=== PATIENT | male | born 1965 | race Caucasian/White ===

== ENCOUNTER 2020-01-01 12:13 | Inpatient (IN) | payer SELFPAY ==
[2020-01-01] VITALS (24 sets, daily range): BP systolic 122–172; BP diastolic 65–116; PULSE 57–70; RESP 12–28; TEMP 36.8–36.9; O2SAT 91–98; BMI 35.4
--- NOTE | 2020-01-01 | CT_ITS ---
WS: [id number] CTA HEAD AND NECK TECHNIQUE: Contrast enhanced CTA of the head and neck with coronal and sagittal reformatted images an d maximum intensity projection (MIP) images. NASCET criteria utilized. CLINICAL INFORMATION: POSSIBLE STROKE RIGHT SIDE WEAKNESS COMPARISON: None. DLP: [address] scans at [facility] use at least one of these dose optimization techniques: automat ed exposure control; mA and/or kV adjustment per patient size (includes targeted exams where dose is matched to clinical indication); or iterative reconstruction. FINDINGS: RIGHT: Right common carotid artery is patent. No significant right ICA stenosis. Right ICA is patent to the skull base. Tortuous cervical ICA at the skull base. Mild calcification supraclinoid ICA. LEFT: Left common carotid artery is patent. No significant left ICA stenosis. Tortuous cervical ICA a t the skull base. Moderate calcification distal cavernous carotid artery. INTRACRANIAL CTA: Basilar artery is patent. Normal vascularity to the GERMAN TEACHER territory bilaterally. Per sistent right GERMAN TEACHER. Tapered narrowing in the left distal M1 segment extending to the trifurcatio n. Distal vessels remain patent. Insular branches are patent. Subtle decreased vascularity to the lef t frontal and left posterior frontal hemispheres. Both vertebral arteries are patent. Notified Elayne Hampton MD at 01/01/2020 12:[address]/CT angio headneck* [id number] IMPRESSION: 1. Mild tapered narrowing left distal M1 segment with early branching bifurcat ion and mild to moderate stenosis. Distal vessels remain patent. 2. Subtle decreased vascularity to the left frontal and posterior frontal lobe s. 3. Otherwise normal intracranial CTA. 4. No significant ICA stenosis bilaterally. Both ICAs are patent to the skull base. 5. Codominant and patent vertebral arteries.
--- NOTE | 2020-01-01 12:24 | XRR_ITS ---
PROCEDURE INFORMATION: Exam: XR Chest, 1 View Exam date and time: 01/01/2020 12:59 PM Age: 54 years old Clinical indication: Other: Right side weakness/difficulty w/speech; Patient HX: Right side weakness / difficulty w speech; Additional info: R side weak TECHNIQUE: Imaging protocol: XR of the chest Views: 1 view. COMPARISON: CR Chest 1 [place] [id number] 12/27/2013 4:58 PM FINDINGS: Lungs: Mildly reduced lung volumes with associated bibasilar bronchovascular crowding. Pleural space: Unremarkable. No pleural effusion. No pneumothorax. Heart/Mediastinum: Heart size upper normal. Bones/joints: Unremarkable. XR/XR chest 1V portable [id number] IMPRESSION: Mild bibasilar hypoventilatory appearance.
--- NOTE | 2020-01-01 12:24 | CT_ITS ---
WS: [id number] CT HEAD TECHNIQUE: Noncontrast CT of the head obtained from the skullbase to the vertex. CLINICAL INFORMATION: POSSIBLE STROKE COMPARISON: None. DLP: [address] scans at [facility] use at least one of these dose optimization techniques: automat ed exposure control; mA and/or kV adjustment per patient size (includes targeted exams where dose is matched to clinical indication); or iterative reconstruction. FINDINGS: No evidence of intracranial hemorrhage or mass effect. Ventricular system and basal cisterns are patrick nt. Mild to moderate small vessel changes with mild parenchymal volume loss. Chronic infarct with en cephalomalacia involving the left parietal lobe extending to the left temporal junction. No CT eviden ce of acute ischemia. Lockett-white differentiation is preserved. Normal insular ribbon bilaterally. Partial opacification the left mastoid air cells. Mastoid air cells well aerated. Mild mucosal thicke getachew in the ethmoid air cells. Notified Elayne Hampton MD at 01/01/2020 12:[address]/CT head wo con* [id number] IMPRESSION: 1. No evidence of intracranial hemorrhage or mass effect. 2. 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 3. Otherwise normal lockett-white differentiation. 4. Mild to moderate small vessel changes with mild parenchymal volume loss. 5. No acute intracranial findings.
--- NOTE | 2020-01-01 12:24 | ECG_ITS ---
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 Measurements Intervals [place] Rate: 71 P: 53 MD: 151 QRS: -33 QRSD: 88 T: 31 QT: 367 QTc: 399 Interpretive Statements SINUS RHYTHM POSSIBLE LEFT ATRIAL ENLARGEMENT [-0.1mV P WAVE IN V1/V2] LEFT AXIS DEVIATION [QRS AXIS < -30] No previous ECG available for comparison Electronically Signed On 01-01-2020 17:44:56 CDT by Leroy Dias M.D. [email or web address]
--- NOTE | 2020-01-01 12:26 | ED_ITS ---
HPI - Neuro Symptoms/Deficit General: Chief Complaint: Neuro Symptoms/Deficit Stated Complaint: POSS CVA Time Seen by Provider: 01/01/20 12:15 Source: EMS History of Present Illness: HPI Narrative: acute onset right sided weakness and diffiulty with speech witnessed at [employer] where he works at 1020 today. no known hx of cva or TIA. Not on blood thinners. no known heart disease. EMS states that symptoms have waxed and waned but they definitely witnessed loss of use of his right upper and lower extremity and difficulty with speech. No injury Associated symptoms: Deny chest pain, headache(s), nausea or vomiting Review of Systems General: Reports: 10 or more systems reviewed and unremarkable except in HPI and below Const: Denies: fever(s) or chills Eyes: Denies: change in vision ENMT: Denies: throat pain Card: Denies: chest pain Resp: Denies: dyspnea GI: Denies: abdominal pain, nausea, vomiting or change in bowel habits : Denies: difficulty urinating Musc: Denies: muscle weakness Skin/Breast: Denies: rash Neuro: Reports: weakness in extremities and Slurred speech present; Denies: headache(s) Psych: Denies: hopelessness or suicidal ideation Endo: Denies: polyuria Candido/Lymph: Denies: easy bruising or easy bleeding All/Imm: Denies: urticaria Physical Exam Const: COMMON NORMALS: no acute distress, patient oriented x3, alert and well nourished HENMT: COMMON NORMALS: normocephalic and Normal external nose present HEAD & SCALP: normocephalic NOSE: Normal external nose present MOUTH: no trismus Eye: COMMON NORMALS: EOMs intact bilaterally and conjunctivae normal CONJUNCTIVA: Yes conjunctivae normal Neck/C-Spine: COMMON NORMALS: full ROM, no lymphadenopathy and supple CERVICAL SPINE: Yes cervical ROM normal Lymph: LYMPHATIC: no lymphadenopathy noted Resp: COMMON NORMALS: normal respiratory effort, No retractions, No use of accessory muscles and clear to auscultation bilaterally EFFORT & INSPECTION: Yes able to speak in complete sentences AUSCULTATION: clear to auscultation bilaterally Cardio: COMMON NORMALS: regular rate and regular rhythm RATE: regular rate RHYTHM: regular rhythm GI: COMMON NORMALS: Normal to inspection, nondistended, normoactive bowel sounds present, Soft to palpation, non-tender and no masses INSPECTION: Yes normal to inspection AUSCULTATION: Yes normoactive bowel sounds PALPATION: Yes Soft to palpation, No Guarding due to palpation present (GI) and No Rigid due to palpation Back/Pelvis: OTHER: Normal range of motion Extremity: GENERAL: Yes normal exam except as noted Neuro: COMMON NORMALS: patient oriented x3 SENSORIUM/ORIENTATION: Yes alert SPEECH: speech normal Psych: COMMON NORMALS: mental status grossly normal Skin: COMMON NORMALS: no rashes or lesions noted GENERAL SKIN EXAM: no rashes or lesions noted Course Vital Signs: Vital signs: Vital Signs Temperature 98.3 F 01/01/20 12:14 Pulse Rate 70 01/01/20 12:14 Respiratory Rate 18 01/01/20 12:14 Blood Pressure 172/86 01/01/20 12:14 MDM - Neuro Symptoms/Deficit MDM Narrative: Medical decision making narrative: met pt along with Dr Antonio on arrival in [place]. NIHSS score 5 (heel to gallegos, some lack of coordination in right hand. We were both in room 5 when TPA was given. Pt tolerated well. Admit to ICU. Dr Antonio wants to see him in the office in 1-2 weeks Lab Data: Attestation: I reviewed the patient's lab results. Labs: Lab Results 01/01/20 01/01/20 01/01/20 Range/Units 11:26 11:26 11:26 WBC 9.0 (4.0-10.0) 10^3/ uL RBC 5.46 H (4.1-5.3) 10^6/u L Hgb 16.5 (11.7-16.6) g/dL Hct 49.7 (42.0-52.0) % MCV 91.0 (80-94) fL MCH 30.2 (28.0-34.0) pg MCHC 33.2 (30.0-36.0) g/dL RDW 13.2 (12.1-15.1) % Plt Count 290 (130-400) 10^3/c mm MPV 10.4 (7.4-10.4) fL Neut % (Auto) 66.5 % Lymph % (Auto) 24.9 % Lee % (Auto) 5.4 % Eos % (Auto) 2.0 % Baso % (Auto) 0.6 % Neut # (Auto) 6.0 (1.8-7.7) 10^3/u L Lymph # (Auto) 2.2 (0.8-4.8) 10^3/u L Lee # (Auto) 0.5 (0.2-0.9) 10^3/u L Eos # (Auto) 0.2 (0.0-0.8) 10^3/u L Baso # (Auto) 0.1 (0.0-0.1) 10^3/u L Nucleated RBC % (a uto) 0 % Nucleated RBCs # 0.0 /100WBC PT 13.30 (10.5-13.3) SECO NDS INR 0.98 (0.8-1.2) APTT 31.0 (23.9-36.7) SECO NDS Sodium 140 (136-145) mmol/L Potassium 3.6 (3.5-5.1) mmol/L Chloride 101 (98-107) mmol/L Carbon Dioxide 26 (22-29) mmol/L Anion Gap 16.6 (5-19) BUN 14 (6-20) mg/dL Creatinine 0.9 (0.7-1.2) mg/dL GFR Calculation 87.9 L (90-130) mL/min Glucose 111 (65-115) mg/dL POC Glucose (70-110) mg/dL Calculated Osmolal ity 287 (285-295) mOsm/k g Calcium 9.6 (8.5-10.5) mg/dL Total Bilirubin 0.3 (0.15-1.2) mg/dL AST 28 (0-40) U/L ALT 43 H (0-41) U/L Alkaline Phosphata se 81 (40-130) IU/L Total Protein 7.3 (6.6-8.7) g/dL Albumin 4.6 (3.5-5.2) g/dL Globulin 2.7 (1.3-4.6) g/dL 01/01/20 Range/Units 12:37 WBC (4.0-10.0) 10^3/ uL RBC (4.1-5.3) 10^6/u L Hgb (11.7-16.6) g/dL Hct (42.0-52.0) % MCV (80-94) fL MCH (28.0-34.0) pg MCHC (30.0-36.0) g/dL RDW (12.1-15.1) % Plt Count (130-400) 10^3/c mm MPV (7.4-10.4) fL Neut % (Auto) % Lymph % (Auto) % Lee % (Auto) % Eos % (Auto) % Baso % (Auto) % Neut # (Auto) (1.8-7.7) 10^3/u L Lymph # (Auto) (0.8-4.8) 10^3/u L Lee # (Auto) (0.2-0.9) 10^3/u L Eos # (Auto) (0.0-0.8) 10^3/u L Baso # (Auto) (0.0-0.1) 10^3/u L Nucleated RBC % (a uto) % Nucleated RBCs # /100WBC PT (10.5-13.3) SECO NDS INR (0.8-1.2) APTT (23.9-36.7) SECO NDS Sodium (136-145) mmol/L Potassium (3.5-5.1) mmol/L Chloride (98-107) mmol/L Carbon Dioxide (22-29) mmol/L Anion Gap (5-19) BUN (6-20) mg/dL Creatinine (0.7-1.2) mg/dL GFR Calculation (90-130) mL/min Glucose (65-115) mg/dL POC Glucose 109 (70-110) mg/dL Calculated Osmolal ity (285-295) mOsm/k g Calcium (8.5-10.5) mg/dL Total Bilirubin (0.15-1.2) mg/dL AST (0-40) U/L ALT (0-41) U/L Alkaline Phosphata se (40-130) IU/L Total Protein (6.6-8.7) g/dL Albumin (3.5-5.2) g/dL Globulin (1.3-4.6) g/dL Imaging Data^: CT Head: Radiologist's impression: nothing acute. cta head and neck: Radiologist's impression: [address] [place] [address] [place] Scan Report Signed Patient: Lisa Washington #: [id number] : 1965Acct#:[id number] Age/Sex: 54 / MADM Date: 01/01/20 Loc: ERRoom/Bed: Attending Dr: Ordering Provider/Ordering MD: Elayne Hampton MD Date of Service: 01/01/20 Procedure(s): CT angio headneck* [id number] Accession Number(s): [id number] Report Number: [id number] WS: [id number] CTA HEAD AND NECK TECHNIQUE: Contrast enhanced CTA of the head and neck with coronal and sagittal reformatted images and maximum intensity projection (MIP) images. NASCET criteria utilized. CLINICAL INFORMATION: POSSIBLE STROKE RIGHT SIDE WEAKNESS COMPARISON: None. DLP: [address] scans at [facility] use at least one of these dose optimization techniques: automated exposure control; mA and/or kV adjustment per patient size (includes targeted exams where dose is matched to clinical indication); or iterative reconstruction. FINDINGS: RIGHT: Right common carotid artery is patent. No significant right ICA stenosis. Right ICA is patent to the skull base. Tortuous cervical ICA at the skull base. Mild calcification supraclinoid ICA. LEFT: Left common carotid artery is patent. No significant left ICA stenosis. Tortuous cervical ICA at the skull base. Moderate calcification distal cavernous carotid artery. INTRACRANIAL CTA: Basilar artery is patent. Normal vascularity to the CHRISTIAN SCIENCE PRACTITIONER territory bilaterally. Persistent right CHRISTIAN SCIENCE PRACTITIONER. Tapered narrowing in the left distal M1 segment extending to the trifurcation. Distal vessels remain patent. Insular branches are patent. Subtle decreased vascularity to the left frontal and left posterior frontal hemispheres. Both vertebral arteries are patent. Notified Elayne Hampton MD at 01/01/2020 12:[address]/CT angio headneck* [id number] IMPRESSION: 1. Mild tapered narrowing left distal M1 segment with early branching bifurcation and mild to moderate stenosis. Distal vessels remain patent. 2. Subtle decreased vascularity to the left frontal and posterior frontal lobes. 3. Otherwise normal intracranial CTA. 4. No significant ICA stenosis bilaterally. Both ICAs are patent to the skull base. 5. Codominant and patent vertebral arteries. Dictated By:Sushil Desai MD Signed By:Sushil Desai MDSigned Date/Time:01/01/20 1302 EKG Data^: EKG 1: EKG interpretation date: 01/01/20 EKG interpretation time: 12:48 Prior EKG tracings: not available for review Interpretation: Sinus rhythm rate [address] left axis deviation normal CT interval Critical Care Time Critical Care Time: Critical Care Time: Yes Total Critical Care Time: 30 Attestation: This case had a high probability of a clinically significant, sudden, or life threatening deterioration of this patient's condition which required my full and direct attention, intervention and personal management. Discharge Plan Discharge Patient Disposition: Admitted As Inpatient Clinical Impression: Cerebrovascular accident Qualifiers: CVA mechanism: unspecified Qualified Code(s): I63.9 - Cerebral infarction, unspecified Condition: Fair Coding Level of Care Code ED Videotape Recording Engineer for Chg Fwd Exam Comprehensive
[2020-01-01 12:49] LABS: Basophils # 0.1 10^3/uL (0.0-0.1); Basophils % 0.6 %; Eosinophils # 0.2 10^3/uL (0.0-0.8); Hematocrit 49.7 % (42.0-52.0); Hemoglobin 16.5 g/dL (11.7-16.6); Lymphocytes # 2.2 10^3/uL (0.8-4.8); Lymphocytes % 24.9 %; Mean Corpuscular HGB Conc 33.2 g/dL (30.0-36.0); Mean Corpuscular Hemoglobin 30.2 pg (28.0-34.0); Mean Platelet Volume 10.4 fL (7.4-10.4); Monocytes # 0.5 10^3/uL (0.2-0.9); Monocytes % 5.4 %; Neutrophils % 66.5 %; Nucleated Red Blood Cells % 0 %; Platelet Count 290 10^3/cmm (130-400); Red Blood Count 5.46 10^6/uL (4.1-5.3); Red Cell Distribution Width 13.2 % (12.1-15.1)
[2020-01-01 12:56] LABS: Glucose Point of Care 109 mg/dL (70-110)
[2020-01-01 13:11] LABS: INR 0.98 (0.8-1.2)
[2020-01-01 13:18] LABS: Alanine Aminotransferase 43 U/L (0-41); Albumin Level 4.6 g/dL (3.5-5.2); Alkaline Phosphatase 81 IU/L (40-130); Anion Gap 16.6 (5-19); Aspartate Amino Transferase 28 U/L (0-40); Blood Urea Nitrogen 14 mg/dL (6-20); Calcium 9.6 mg/dL (8.5-10.5); Carbon Dioxide 26 mmol/L (22-29); Chloride 101 mmol/L (98-107); Globulin 2.7 g/dL (1.3-4.6); Glomerular Filtration Rate 87.9 mL/min (90-130); Glucose 111 mg/dL (65-115); Osmolality Calculated 287 mOsm/kg (285-295); Potassium 3.6 mmol/L (3.5-5.1); Sodium 140 mmol/L (136-145); Total Bilirubin 0.3 mg/dL (0.15-1.2); Total Protein 7.3 g/dL (6.6-8.7)
--- NOTE | 2020-01-01 13:46 | P.HP_ITS ---
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 He noticed that he could not pull the lever with his right arm or operate the brakes. His speech was also noted to be garbled at that time and he was sent over to the ER from the EMS. He arrived here at around 12 PM and was seen immediately by neurology. CT of the head showed a lesion in the left parietal lobe that appeared to be chronic. Given the acuity of symptoms and and consistent findings he underwent TPA at 12:[address] Antonio in the ER. NIHSS at presentation was 5. And the time of my evaluation, his right-sided deficits have resolved. His speech is clear and coherent at this present time. I do not see any facial asymmetry. CTA of the head and neck was performed which showed mildly tapered narrow left distal M1 middle cerebral artery with subtle decrease in vascularity of the left frontal and posterior frontal region. There was no sign of an acute embolus. Review of Systems General: Reports: 10 or more systems reviewed and unremarkable except in HPI and below Const: Denies: fever(s), chills or body aches Eyes: Denies: change in vision, blurry vision or photophobia ENMT: Reports: hoarseness; Denies: throat pain, enlarged tonsils, odynophagia or nasal congestion Card: Denies: chest pain, palpitations, irregular heart rhythm, edema, swelling of feet/ankles, lightheadedness, pre-syncope, dyspnea on exertion or orthopnea Resp: Denies: dyspnea, productive cough, non-productive cough, wheezing, stridor, pain on inspiration, change in phlegm color, hemoptysis or chest congestion GI: Denies: abdominal pain, nausea, vomiting, hematemesis, coffee ground emesis, dysphagia, heartburn, diarrhea, constipation, GI cramping, change in stool character, hematochezia or melena : Denies: flank pain, dysuria, urinary frequency, urinary urgency, urinary hesitancy or hematuria Musc: Denies: neck pain, back pain, extremity pain, joint swelling, joint warmth or deformity Neuro: Denies: headache(s), numbness in extremities, weakness in extremities, sensory changes, difficulty walking, frequent falls, dizziness, vertigo, behavioral changes, Slurred speech present or seizure-like activity Psych: Denies: anxiety, depression, suicidal ideation or homicidal ideation Endo: Denies: polyuria, polydipsia, tired all the time, cold intolerance or ho t flashes Candido/Lymph: Denies: easy bruising or easy bleeding Medications/Allergies Home Medications Medication Instructions Recorded Confirmed Last Taken Type No Known Home Medications 01/01/20 01/01/20 Unknown History Allergies Allergy/AdvReac Type Severity Reaction Status Date / Time Unable to Assess Allergy Unverified 01/01/20 12:46 PFSH Acute PFSH: Family History Other Stroke Social History (Updated 01/01/20 @ 18:45 by Francesca Palacios MD) Smoking and tobacco status: current every day smoker Alcohol intake: unknown Substance/Drug Use: unknown Vitals/I&O/Wt Last Vital Signs Temp 98.3 F 01/01/20 12:14 Pulse 70 01/01/20 12:14 Resp 18 01/01/20 12:14 BP 172/86 01/01/20 12:14 12/31/19 01/01/20 01/01/20 22:59 06:59 14:59 Intake Total Balance Weight last 48 hrs Weight 108.817 kg Physical Exam Narrative: EXAM NARRATIVE: GEN: Awake, alert and oriented, no acute distress CVS: S1S2 N RS: CTA B/L Abd: Soft, nt/nd , bs+ 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 Acute left MCA stroke : -s/p tPA at 12:42 pm today in the ER -Vital signs and neurologic status to be checked every 15 minutes for two hours, then every 30 minutes for six hours, then every 60 minutes until 24 hours from the start of alteplase treatment. -Blood pressure must be maintained at or below 180/105 mmHg during the first 24 hours. -Antithrombotic agents incl ASA and Plavix to start 24 hours after the alteplase infusion is completed. - Follow-up noncontrast CT will be obtained 24 hours after alteplase, before starting treatment with antiplatelet agent. Start Lipitor today. - check hemoglobin A1c, lipid panel, TSH to assess for modifiable risk factors. -Check 2D echocardiogram - Telemetry monitoring for the next 24 hours., Holter monitor to be arranged at the time of discharge 2. Hypertension, patient has been noted to have blood pressure up to 179 systolic over here. He denies any past history of hypertension, however has not seen a physician in years. We will keep a close eye. Blood pressure goal to be less than 180/105 during the first 24 hours. 3. Smoking cessation counseling provided DVT ppx: SCD Full code Attestations Medical Necessity Statement*: Acute left MCA infarct, needs post TPA monitoring in the ICU. 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
[2020-01-01 14:40] LABS: Chol HDL Ratio 6.84 mg/dL (1.0-5.00); Cholesterol 171 mg/dL (0-200); HDL Cholesterol 25 mg/dL (60-100); LDL Cholesterol Calculated 73 mg/dL (50-129); LDL HDL Ratio 2.92 RATIO (0.00-3.22); Thyroid Stimulating Hormone 0.82 uIU/mL (0.27-4.20); Triglycerides 364 mg/dL (0-150)
[2020-01-01 14:57] LABS: Estmated Average Glucose 108; Hemoglobin A1C 5.4 % (4.0-6.0)
[2020-01-01 17:01] LABS: Add Urine Microscopic? YES; Bilirubin Urine Neg (NEGATIVE); Blood Urine Neg (Negative); Glucose Urine UA Norm (Normal); Ketones Urine Negative (Negative); Leukocyte Esterase Urine Negative (Negative); Nitrate Urine Positive (Negative); Protein Urine Neg (Negative); Specific Gravity, Urine 1.015 (1.005-1.030); Urine Color Yellow (Yellow); Urobilinogen Urine Neg (Negative); pH Urine 5 (5-7)
[2020-01-01 17:02] LABS: WBC Urine 0-4 /hpf (0-5)
[2020-01-01 17:03] LABS: Add Urine Culture? Yes; Bacteria Urine 4+; Squamous Epithelial Cell Urine 0-4 (0-5)
[2020-01-01 17:12] LABS: Amphetamines Screen Urine Negative (Negative); Barbiturates Screen Urine Negative (Negative); Benzodiazepines Screen Urine Negative (Negative); Cocaine Screen Urine Negative (Negative); Opiate Screen Urine Negative (Negative); PCP Screen Urine Negative (Negative); THC Screen Urine Positive (Negative)
--- NOTE | 2020-01-01 17:51 | PM.SAN ---
Stroke Alert Activation ED Arrival Date: 01/01/20 ED Arrival Time: 12:11 ED Physican at Bedside: 12:20 Last Known Normal/at Baseline: 1-2 hours ago Other Last Known Well Infomation: I was called stat for stroke team at 12:03 PM. I talked with the nurse who took the report from EMS and learned that this was a 54-year-old man with right-sided weakness and onset/last known well 1020 this morning. As I heard the ambulance approaching I went to CAT scan where the patient was just starting his scan. I was able to observe that he was moving his right side and talking with the certified technician specialist. His CT scan of the head was significant for a lesion in the left parietal lobe that appeared to be old. I took a history from EMS who reported that the patient had onset of symptoms while he was at work at the [facility] with observed onset. EMS was called and they agreed to pick him up at the doctor's office nearby and he was taken to the physician's office and picked up by [facility]. When they arrived he was flaccid on the right side and could not communicate with them. By the time they packaged him up for transport he was already starting to move his right side. He fluctuated several times during his transportation and improved again by the time he arrived here. On completion of the CAT scan I examined the patient and found that he was able to repeat a complex phrase and could move his right side although he appeared slightly weak. Because of the intense fluctuation of his symptoms I felt that we should rule out middle cerebral artery occlusion and went on with CT angiogram which also allowed for contrast CT to better evaluate the lesion in his left parietal. While that was being completed I talked with the neuroradiologist and we reviewed his images. I then returned to the emergency department where the patient had vitals including blood pressure 172/86 and Accu-Chek of 123. NIH stroke scale was completed by 1235 yielding a score of 5 and difficulty ambulating. TPA order was given immediately and bolus was at 1242, 30 minutes after arrival. I talked with the patient about the diagnosis. I asked him to stop smoking today. Dr. Desai had an opportunity to review the patient's CT angiogram once the images were fully acquired. He found a mildly tapered narrow left distal M1 middle cerebral artery with subtle decrease in vascularity of the left frontal and posterior frontal region. This was far beyond any opportunity for neuro intervention. There was no sign of an acute embolus. I explained to the patient that I want to see him in my office in 1 to 2 weeks to review his stroke risk factors. He needs to be started on Plavix, aspirin and Lipitor. He needs repeat CT scan of the head in the morning to rule out hemorrhage. Stroke Alert Activated by: [facility] Stroke Alert Activation Time: 12:03 Stroke MD @ Bedside Time: 12:12 NIH Stroke Scale Time: 12:35 NIH Stroke Scale Score: NIH Stroke Scale Score: 5 NIH stroke score NIHSS: Level Of Consciousness - 1a: 0 Level Of Consciousness Questions - 1b: Both Correct Level Of Consciousness Commands - 1c: Both Correct Best Gaze - 2: Normal Visual Cross - 3: No Visual Loss Facial Palsy - 4: Normal Motor Arm Right - 5: Drift Motor Arm Left - 5: No Drift Motor Leg Right - 6: Drift Motor Leg Left - 6: No Drift Limb Ataxia - 7: Present In Two Limbs Sensory - 8: Normal Best Language - 9: Mild/Moderate Aphasia Dysarthia - 10: Normal Extinction And Inattention - 11: 0 Score: Total Score: 5 Stroke Alert Data/Treatment Time to CT of Head: 12:12 CT Results Time: 12:15 CT Impression: Chronic lesion left parietal otherwise normal Stroke Risk Factors: hypertension and smoker tPA Started Time: tPA Started - Time: 12:42 tPA Admin Prior to Arrival: No Patient & Family Educated on: Cause of Stroke, Risk Factors, Treament Plan and tPA Risks/Benefits Standardized Stroke Orders Used: Yes Critical Care Time Critical Care Time: 30 - 74 mins A&P Assessment and plan (1) Left middle cerebral artery stroke: 54-year-old smoker with hypertension who presents acutely with left middle cerebral artery stroke. He has already had a previous posterior branch left middle cerebral artery stroke that was asymptomatic (he definitely has no visual field cut on exam). Risk factors include family history (his father had a severe stroke), mild obesity, smoking and hypertension. Plan to initiate Plavix, aspirin and Lipitor. Because of his young age he should have 20-day monitoring for atrial fibrillation. Transesophageal echo should be done as an outpatient. Echocardiogram here. I will be glad to see the patient if he has further problems otherwise I would like to see him in my office within 1 to 2 weeks. 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
[2020-01-01] MEDS: atorvastatin 40 mg Tablet PO (21:03)
[2020-01-01] MEDS: diphenhydrAMINE 25 mg Capsule PO (21:50)
[2020-01-02] VITALS (42 sets, daily range): BP systolic 102–151; BP diastolic 51–92; PULSE 54–74; RESP 12–25; TEMP 36.6–36.7; O2SAT 91–98
[2020-01-02 05:11] LABS: Basophils % 0.5 %; Eosinophils # 0.3 10^3/uL (0.0-0.8); Eosinophils % 2.9 %; Hematocrit 47.5 % (42.0-52.0); Hemoglobin 15.9 g/dL (11.7-16.6); Mean Corpuscular HGB Conc 33.5 g/dL (30.0-36.0); Mean Corpuscular Hemoglobin 30.9 pg (28.0-34.0); Mean Corpuscular Volume 92.4 fL (80-94); Mean Platelet Volume 10.3 fL (7.4-10.4); Monocytes # 0.6 10^3/uL (0.2-0.9); Monocytes % 7.2 %; Neutrophils # 5.8 10^3/uL (1.8-7.7); Neutrophils % 65.8 %; Nucleated Red Blood Cells % 0 %; Platelet Count 261 10^3/cmm (130-400); Red Blood Count 5.14 10^6/uL (4.1-5.3); Red Cell Distribution Width 13.2 % (12.1-15.1); White Blood Count 8.9 10^3/uL (4.0-10.0)
[2020-01-02 05:20] LABS: Alanine Aminotransferase 39 U/L (0-41); Albumin Level 4.2 g/dL (3.5-5.2); Alkaline Phosphatase 63 IU/L (40-130); Aspartate Amino Transferase 25 U/L (0-40); Blood Urea Nitrogen 12 mg/dL (6-20); Calcium 9.4 mg/dL (8.5-10.5); Carbon Dioxide 23 mmol/L (22-29); Chloride 104 mmol/L (98-107); Globulin 2.4 g/dL (1.3-4.6); Glomerular Filtration Rate 100.7 mL/min (90-130); Glucose 102 mg/dL (65-115); Osmolality Calculated 280 mOsm/kg (285-295); Sodium 137 mmol/L (136-145); Total Bilirubin 0.6 mg/dL (0.15-1.2); Total Protein 6.6 g/dL (6.6-8.7)
--- NOTE | 2020-01-02 12:00 | CT_ITS ---
WS: [id number] CT HEAD TECHNIQUE: Noncontrast CT of the head obtained from the skullbase to the vertex. CLINICAL INFORMATION: 24 hrs post tPA follow up COMPARISON: January 01, 2020 DLP: 760.[address] scans at use at least one of these dose optimization techniques: automat ed exposure control; mA and/or kV adjustment per patient size (includes targeted exams where dose is matched to clinical indication); or iterative reconstruction. FINDINGS: No evidence of intracranial hemorrhage. New wedge-shaped area of subacute ischemia in the left fronta l lobe laterally measuring 1.6 x 2.5 CM. No hemorrhage or mass effect. Additional low-attenuation foc us along the left lateral internal capsule may represent an additional focus of subacute ischemia. No other foci of subacute ischemia. Stable chronic infarct with encephalomalacia in the left parietal and superior temporal lobes. No oth er changes from previous. CT/CT head wo con* [id number] IMPRESSION: 1. No evidence of intracranial hemorrhage 2. New wedge-shaped area of subacute ischemia in the left frontal lobe lateral ly described above. 3. Additional tiny focus of low-attenuation along the lateral internal capsule also suspicious for small focus of subacute ischemia. 4. No other interval changes
--- NOTE | 2020-01-02 17:16 | P.DS_ITS ---
Discharge Providers Date of Admission: 01/01/20 13:00 Date of Discharge: January 02, 2020 Attending Provider at Admission: Francesca Palacios MD Attending Provider at Discharge: Francesca Palacios MD Diagnoses at Discharge Discharge Diagnosis (1) Cerebrovascular accident: Status: Acute Qualifiers: CVA mechanism: unspecified Qualified Code(s): I63.9 - Cerebral infarction, unspecified (2) Hypertension: Status: Acute Qualifiers: Hypertension type: essential hypertension Qualified Code(s): I10 - Essential (primary) hypertension (3) Left middle cerebral artery stroke: Status: Acute Reason for Visit Reason for Visit: POSS CVA Hospital Course Discharge Summary: Juan C Washington is a 54 year old male with no significant past medical history, however not seen a physician in years, chronic smoker, who presented to the ER on 12/31 with chief complaint of right-sided weakness which started suddenly at around 10:30 AM 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 He noticed that he could not pull the lever with his right arm or operate the brakes. His speech was also noted to be garbled at that time and he was sent over to the ER from the EMS. He arrived here at around 12 PM and was seen immediately by neurology. CT of the head showed a lesion in the left parietal lobe that appeared to be chronic. Given the acuity of symptoms and and consistent findings he underwent TPA at 12:[address] Antonio in the ER. NIHSS at presentation was 5. And the time of my evaluation, his right-sided deficits had resolved and remained that way. CTA of the head and neck was performed which showed mildly tapered narrow left distal M1 middle cerebral artery with subtle decrease in vascularity of the left frontal and posterior frontal region. There was no sign of an acute embolus. telemetry did not show any arrhtmia events. outpatient holter monitoring is set up. Rpt CT on 01/01 24 hr post tpa showed wedge-shaped area of subacute ischemia in the left frontal lobe laterally and tiny focus of low-attenuation along the lateral internal capsule also suspicious for small focus of subacute ischemia, likely now better visualized strokes. Echo showed normal transthoracic echocardiogram. He is being discharged on aspirin, Plavix, atorvastatin and amlodipine 5 mg. He is instructed to maintain a blood pressure diary checking his blood pressure twice a day and bring it to his follow-up appointment with Dr. Anotnio and also with his PCP. He does not have a PCP right now, however states that he will initiate care with the [facility]. HbA1c was within normal limits. He was provided smoking cessation counseling. 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 Discharge Data Data Completed and Pending: Completed Studies During Hospitalization Category Date Time Status CT angio headneck * 88410/26742 Urge nt Cat Scan 01/01/[address] head wo con* 7 0450 Routine Cat Scan 01/02/20 12:[address] head wo con* 7 0450 Urgent Cat Scan 01/01/20 12:24 Completed XR chest 1V serenity ble [id number] Stat Exams 01/01/20 12:24 Completed CV echo complete* [id number] Routine Ultrasound 01/02/20 18:51 Completed Pending at discharge Category Date Time Status CA 30 day event m onitor Routine Exams 01/01/20 18:51 Ordered CA cardiac event monitor Routine Exams 01/01/20 18:51 Stop Req Complete Blood Co unt w/Auto AM LABS Lab 01/03/20 04:00 Ordered Complete Blood Co unt w/Auto AM LABS Lab 01/04/20 04:00 Ordered Comprehensive Met abolic Panel AM LA BS Lab 01/03/20 04:00 Ordered Comprehensive Met abolic Panel AM LA BS Lab 01/04/20 04:00 Ordered Urine Culture Sta t Lab 01/01/20 16:10 Results Labs from last 24 hours 01/02/20 01/02/20 03:51 03:51 WBC 8.9 RBC 5.14 Hgb 15.9 Hct 47.5 MCV 92.4 MCH 30.9 MCHC 33.5 RDW 13.2 Plt Count 261 MPV 10.3 Neut % (Auto) 65.8 Lymph % (Auto) 23.0 Thayer % (Auto) 7.2 Eos % (Auto) 2.9 Baso % (Auto) 0.5 Neut # (Auto) 5.8 Lymph # (Auto) 2.0 Thayer # (Auto) 0.6 Eos # (Auto) 0.3 Baso # (Auto) 0.0 Nucleated RBC % (a uto) 0 Nucleated RBCs # 0.0 Sodium 137 Potassium 4.0 Chloride 104 Carbon Dioxide 23 Anion Gap 14.0 BUN 12 Creatinine 0.8 GFR Calculation 100.7 Glucose 102 Calculated Osmolal ity 280 L Calcium 9.4 Total Bilirubin 0.6 AST 25 ALT 39 Alkaline Phosphata se 63 Total Protein 6.6 Albumin 4.2 Globulin 2.4 Vitals: Last Vital Signs Temp 98 F 01/02/20 10:00 Pulse 65 01/02/20 17:00 Resp 16 01/02/20 17:00 BP 117/62 01/02/20 17:00 Pulse Ox 93 01/02/20 17:00 Discharge Plan Discharge Patient Disposition: Home, Self-Care Condition: Fair Prescriptions: New atorvastatin 40 mg Tablet 40 mg PO BEDTIME 30 Days Qty: 30 RF: 0 amlodipine 5 mg tablet 5 mg PO DAILY Qty: 30 RF: 0 aspirin [Adult Aspirin Regimen] 81 mg tablet,delayed release (DR/EC) 81 mg PO DAILY Qty: 30 RF: 1 clopidogrel [Plavix] 75 mg tablet 75 mg PO DAILY Qty: 30 RF: 1 No Action No Known Home Medications RF: 0 Discharge Orders: Discharge Order (Routine); Ordered 01/02/20 Ordered By: Francesca Palacios Referrals: Yaima Ferrara FNP [Family Provider] - 2 weeks Siri Antonio MD [Physician] - 7-10 days Discharge Diet: Cardiac, Low Salt and Low Cholesterol Discharge Activity: Resume usual activity Activity Restrictions/Additional Instructions: Maintain a blood pressure diary way of checking blood pressure at the same time every day twice a day and bring it to the next follow-up appointment with your primary care provider and neurology. 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
--- NOTE | 2020-01-02 18:51 | USCV_ITS ---
Juan C Washington Age: 54 Gender: M : 1965 Exam Date: 01/02/2020 05:45 Ordering Phys: Francesca Palacios MD Technologist: Fiorella Fairbanks Exam Location: [facility] Indication: CVA BP: 102 / 57 HR: 59 Rhythm: Sinus Technical Quality: Adequate MEASUREMENTS (Male / Female) Normal Values 2D ECHO LV Diastolic Diameter PLAX 3.7 cm 4.2 - 5.9 / 3.9 - 5.3 cm LV Systolic Diameter PLAX 1.9 cm LV Chamber Size 3.5 cm IVS Diastolic Thickness 1.5 cm 0.6 - 1.0 / 0.6 - 0.9 cm IVS Systolic Thickness 1.6 cm LVPW Diastolic Thickness 1.6 cm 0.6 - 1.0 / 0.6 - 0.9 cm LVPW Systolic Thickness 1.6 cm RV Chamber Size 1.9 cm LVOT Diameter 2.1 cm LV Ejection Fraction 2D Teich 81.2 % LV Ejection Fraction MOD 2C 66.0 % LV Ejection Fraction 2C AL 65.3 % LA Diameter 4.0 cm LA Width 2.7 cm LA Height 3.7 cm RA Width 2.8 cm RA Height 4.1 cm Aorta at Sinotubular Diameter 3.7 cm M-MODE LV Diastolic Diameter MM 4.7 cm 4.2 - 5.9 / 3.9 - 5.3 cm LV Systolic Diameter MM 2.7 cm LV Ejection Fraction MM Teich 73.9 % IVS Diastolic Thickness MM 1.2 cm 0.6 - 1.0 / 0.6 - 0.9 cm IVS Systolic Thickness MM 1.3 cm LVPW Diastolic Thickness MM 1.0 cm 0.6 - 1.0 / 0.6 - 0.9 cm LVPW Systolic Thickness MM 1.6 cm RV Diastolic Diameter MM 1.3 cm Aortic Annulus Diameter 3.7 cm LA Ao Ratio MM 1.1 MV E Point Septal Separation 0.2 cm DOPPLER AV Peak Velocity 128.0 cm/s LVOT Peak Velocity 91.0 cm/s AV Area Cont Eq vti 2.9 cm squared AV Area Cont Eq pk 2.4 cm squared MV Area PHT 3.9 cm squared Mitral E to A Ratio 1.1 MV E' Velocity 77.0 cm/s TR Peak Velocity 114.8 cm/s TR Peak Gradient 5.3 mmHg TR Mean Velocity 70.0 cm/s TR Mean Gradient 2.3 mmHg TR Velocity Time Integral 22.2 cm TV Peak E Velocity 60.0 cm/s Right Atrial Pressure 3.0 mmHg Pulmonary Artery Systolic Pressu 8.3 mmHg PV Peak Velocity 61.0 cm/s RV Acceleration Time 0.2 s RV Ejection Time 0.4 s RV AcT/ET 0.5 FINDINGS Left Ventricle Normal left ventricular size, systolic function and wall thickness, with no regional wall motion abnormalities. Normal left ventricular wall thickness. Normal diastolic filling pattern. Left ventricular ejection fraction is estimated at 60 %. Right Ventricle The right ventricle is normal in size and function. Right Atrium The right atrium is normal in size. Left Atrium The left atrium is normal in size. Mitral Valve Structurally normal mitral valve without significant stenosis or prolapse. There is no mitral regurgitation. Aortic Valve Structurally normal aortic valve without significant sclerosis or stenosis. There is no aortic regurgitation. Tricuspid Valve Structurally normal tricuspid valve without significant stenosis or regurgitation. Pulmonary artery systolic pressure is normal. Pulmonic Valve Structurally normal pulmonic valve without significant stenosis. There is no pulmonic regurgitation. Pericardium Normal pericardium without effusion. Aorta Normal ascending aorta dimension. CONCLUSIONS Normal transthoracic echocardiogram. There are no prior echocardiogram studies to compare. Dr. Leroy Dias MD (Electronically Signed) Final Date: 02 January 2020 09:55 S
--- NOTE | 2020-01-02 19:01 | PC.NURSE ---
stroke teaching completed. scripts sent and patient aware of their location. monitor set up can be done in am when he comes for his medications. private secretary linda will call the cardiology group to make them aware of patients needs and will contact patient when she knows that they have his monitor. patients iv was removed for discharge. he is dressed. his ride is coming from [place]. he has no car at this time so he will have trouble getting transport to these proceedures and appointments possibly.
== END 2020-01-02 20:00 | disposition home or self-care (01) | DRG 62 ==
LOC: ER 13:39 → ICU 16:40
PROVIDERS: Emergency Medicine; Admitting Provider Student in an Organized Health Care Education/Training Program; Family Provider Nurse Practitioner; Visit Provider Student in an Organized Health Care Education/Training Program
DX: I63.512 Cerebral infarction due to unspecified occlusion or stenosis of left middle cerebral artery (principal); G81.91 Hemiplegia, unspecified affecting right dominant side; I10 Essential (primary) hypertension; F17.210 Nicotine dependence, cigarettes, uncomplicated; R29.705 NIHSS score 5
CPT/HCPCS: 12345; 36415; 36416; 70450; 70496; 70498; 71045; 80053; 80061; 80306; 81001; 82962; 83036; 84443; 85025; 85610; 85730; 87077; 87086; 87186; 93005; 93306; 99284; J2997; Q9967

== ENCOUNTER 2020-11-15 10:54 | Inpatient (IN) | payer SELFPAY ==
[2020-11-15] VITALS (18 sets, daily range): BP systolic 113–149; BP diastolic 72–101; PULSE 70–103; RESP 13–24; TEMP 36.6–36.8; O2SAT 92–97; BMI 34.0
--- NOTE | 2020-11-15 10:57 | XRR_ITS ---
PROCEDURE INFORMATION: Exam: XR Chest Exam date and time: 11/15/2020 10:59 AM Age: 54 years old Clinical indication: Pain; Other: Mid; Additional info: Chest pain TECHNIQUE: Imaging protocol: XR of the chest. Views: 1 view. COMPARISON: CR XR chest 1V portable [id number] 01/01/2020 12:49 PM FINDINGS: Lungs: Emphysematous change, interstitial prominence, chronic granulomatous disease. Pleural spaces: No pleural effusion. Heart/Mediastinum: No cardiomegaly. Bones/joints: Degenerative change. XR/XR chest 1V portable [id number] IMPRESSION: Emphysematous change, interstitial prominence, chronic granulomatous disease.
--- NOTE | 2020-11-15 10:58 | ECG_ITS ---
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 Measurements Intervals Reese Rate: 70 P: 60 OH: 149 QRS: -85 QRSD: 94 T: 79 QT: 360 QTc: 390 Interpretive Statements SINUS RHYTHM POSSIBLE LEFT ATRIAL ENLARGEMENT [-0.1mV P WAVE IN V1/V2] LEFT ANTERIOR FASCICULAR BLOCK [QRS AXIS <= -45, QR IN I, RS IN II] INFERIOR MYOCARDIAL INFARCTION , PROBABLY OLD [40+ ms Q WAVE AND/OR ST/T ABNORMALITY IN II/aVF] ANTEROSEPTAL MYOCARDIAL INFARCTION , PROBABLY RECENT [40+ ms Q WAVE IN V1-V4] ACUTE MD INTERPRETATION BASED ON A DEFAULT AGE OF 40 YEARS Compared to ECG 01/01/2020 12:54:50 Left anterior fascicular block now present Myocardial infarct finding now present Left-axis deviation no longer present Electronically Signed On 11-15-2020 20:45:50 CDT by Grey Roth M.D. [id number]
--- NOTE | 2020-11-15 11:03 | ED_ITS ---
HPI - Chest Pain General: Chief Complaint: Chest Pain Stated Complaint: CHEST PAIN Time Seen by Provider: 11/15/20 10:57 History of Present Illness: HPI narrative: 54-year-old male presents with chest pain. Patient's chest pain started last night. He called EMS this morning. EMS arrived, patient had ST elevation in his lateral leads. Patient was given 324 mg aspirin, 100 mcg of fentanyl, 3 sublingual nitros and 1 inch Nitropaste. 4 mg of Zofran. Patient's chest pain has improved significantly. He still has some very minimal discomfort. Patient does report a history of 3 strokes in the last approximately a year and a half. Associated symptoms: Deny abdominal pain, dyspnea, fever(s), palpitations or vomiting Review of Systems Const: Denies: fever(s) or chills ENMT: Denies: throat pain Card: Reports: chest pain; Denies: palpitations Resp: Denies: dyspnea GI: Denies: abdominal pain, vomiting or diarrhea : Denies: difficulty urinating Skin/Breast: Denies: rash PFSH ED PFSH: Medical History Cigarette smoker Hypertension Left middle cerebral artery stroke Family History Other Stroke Social History Smoking and tobacco status: current every day smoker Alcohol intake: unknown Physical Exam Const: COMMON NORMALS: no acute distress and patient oriented x3 GENERAL APPEARANCE: cooperative Resp: COMMON NORMALS: normal respiratory effort, No retractions and clear to auscultation bilaterally AUSCULTATION: clear to auscultation bilaterally Cardio: COMMON NORMALS: regular rate and regular rhythm RATE: regular rate RHYTHM: regular rhythm Extremity: COMMON NORMALS: normal to inspection and full ROM Neuro: COMMON NORMALS: patient oriented x3 and CN's II-XII intact bilaterally Psych: COMMON NORMALS: mental status grossly normal, Normal thought process present and cooperative THOUGHT PROCESS: Normal thought process present Course Vital Signs: Vital signs: Vital Signs Temperature 98.0 F 11/15/20 10:54 Pulse Rate 82 11/15/20 14:45 Respiratory Rate 18 11/15/20 14:45 Blood Pressure 145/97 11/15/20 14:45 Pulse Oximetry 92 11/15/20 14:45 MDM - Chest Pain MDM Narrative: Medical decision making narrative: Patient with an acute STEMI. Patient was taken to Licensed Insurance Sales Agent from the ER for further management. Patient was transferred in stable condition Lab Data: Labs: Lab Results 11/15/20 11/15/20 11/15/20 Range/Units 10:06 10:06 10:06 WBC 15.8 H (4.0-10.0) 10^3/ uL RBC 5.54 H (4.1-5.3) 10^6/u L Hgb 17.1 H (11.7-16.6) g/dL Hct 49.6 (42.0-52.0) % MCV 89.5 (80-94) fL MCH 30.9 (28.0-34.0) pg MCHC 34.5 (30.0-36.0) g/dL RDW 12.3 (12.1-15.1) % Plt Count 290 (130-400) 10^3/c mm MPV 10.7 H (7.4-10.4) fL Neut % (Auto) 80.0 % Lymph % (Auto) 12.1 % Jasper % (Auto) 6.7 % Eos % (Auto) 0.3 % Baso % (Auto) 0.4 % Neut # (Auto) 12.61 H (1.8-7.7) 10^3/u L Lymph # (Auto) 1.9 (0.8-4.8) 10^3/u L Jasper # (Auto) 1.1 H (0.2-0.9) 10^3/u L Eos # (Auto) 0.1 (0.0-0.8) 10^3/u L Baso # (Auto) 0.1 (0.0-0.1) 10^3/u L Nucleated RBC % (a uto) 0 % Nucleated RBCs # 0.0 /100WBC PT 13.80 (12.1-14.9) SECO NDS INR 1.03 (0.8-1.2) APTT 27.7 (23.9-36.7) SECO NDS Sodium 137 (136-145) mmol/L Potassium 3.7 (3.5-5.1) mmol/L Chloride 99 (98-107) mmol/L Carbon Dioxide 23 (22-29) mmol/L Anion Gap 18.7 (5-19) BUN 9 (6-20) mg/dL Creatinine 0.7 (0.7-1.2) mg/dL GFR Calculation 117.5 (90-130) mL/min Glucose 113 (65-115) mg/dL Calculated Osmolal ity 283 L (285-295) mOsm/k g Calcium 9.2 (8.5-10.5) mg/dL Total Bilirubin 0.6 (0.15-1.2) mg/dL AST 128 H (0-40) U/L ALT 45 H (0-41) U/L Alkaline Phosphata se 89 (40-130) IU/L Troponin T Baselin e (0-15) ng/L Total Protein 7.0 (6.6-8.7) g/dL Albumin 4.4 (3.5-5.2) g/dL Globulin 2.6 (1.3-4.6) g/dL / Range/Units 10:06 WBC (4.0-10.0) 10^3/ uL RBC (4.1-5.3) 10^6/u L Hgb (11.7-16.6) g/dL Hct (42.0-52.0) % MCV (80-94) fL MCH (28.0-34.0) pg MCHC (30.0-36.0) g/dL RDW (12.1-15.1) % Plt Count (130-400) 10^3/c mm MPV (7.4-10.4) fL Neut % (Auto) % Lymph % (Auto) % Jasper % (Auto) % Eos % (Auto) % Baso % (Auto) % Neut # (Auto) (1.8-7.7) 10^3/u L Lymph # (Auto) (0.8-4.8) 10^3/u L Jasper # (Auto) (0.2-0.9) 10^3/u L Eos # (Auto) (0.0-0.8) 10^3/u L Baso # (Auto) (0.0-0.1) 10^3/u L Nucleated RBC % (a uto) % Nucleated RBCs # /100WBC PT (12.1-14.9) SECO NDS INR (0.8-1.2) APTT (23.9-36.7) SECO NDS Sodium (136-145) mmol/L Potassium (3.5-5.1) mmol/L Chloride (98-107) mmol/L Carbon Dioxide (22-29) mmol/L Anion Gap (5-19) BUN (6-20) mg/dL Creatinine (0.7-1.2) mg/dL GFR Calculation (90-130) mL/min Glucose (65-115) mg/dL Calculated Osmolal ity (285-295) mOsm/k g Calcium (8.5-10.5) mg/dL Total Bilirubin (0.15-1.2) mg/dL AST (0-40) U/L ALT (0-41) U/L Alkaline Phosphata se (40-130) IU/L Troponin T Baselin e 918 H* (0-15) ng/L Total Protein (6.6-8.7) g/dL Albumin (3.5-5.2) g/dL Globulin (1.3-4.6) g/dL EKG Data^: EKG 1: Attestation: I personally reviewed and interpreted this EKG as follows: EKG interpretation date: 11/15/20 EKG interpretation time: 10:57 Ischemic changes: acute STEMI Interpretation: HR 70, sinus, q waves, st elevation V2-V5, stemi Discharge Plan Discharge Patient Disposition: Admitted As Inpatient Admit Provider: Andrew Saldivar Clinical Impression: ST elevation (STEMI) myocardial infarction Qualifiers: Involved coronary artery: unspecified coronary artery Qualified Code(s): I21.3 - ST elevation (STEMI) myocardial infarction of unspecified site Condition: Stable Coding Level of Care Code ED 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
--- NOTE | 2020-11-15 11:04 | XACV_ITS ---
Ht: 175 cm Wt: 104 kg BSA: 2.29 m2 Gender: Male : 1965 Any Known Allergies: Other Exam Priority: Routine Procedure(s): Procedure Description: Diagnostic procedure Procedure Description: PCI procedure Procedure Description: Drug Eluting Coronary Stent Procedure Description: PTCA Procedure Description: Miscellaneous Procedure Description: ACT Procedure Description: Coronary Angiography Diagnostic Cath Status: Emergency Diagnostic Findings * Left Main has minor luminal irregularities. * Circumflex is a small sized vessel. Has mild to moderate mid vessel disease. * Right Coronary Artery has diffuse luminal irregularities. * Ramus intermedium is a large sized vessel and does not have any significant stenosis. * Proximal Left Anterior Descending: total thrombotic occlusion, ANKITA: 0 flow. Culprit vessel for acute ST elevation IN. * Coronary angiography shows right dominance. PCI Status: Emergency PCI Indication: STEMI - Stable (> 12 hrs Sx) Interventional Findings * Procedure details: We engaged left main artery with a XB 3.5 guide catheter. IV heparin was administered to maintain an ACT above 250 seconds. A 0.014 run-through guidewire was used to cross the thrombotic occlusion region of LAD. 2.5 x 12 mm semicompliant balloon was used to predilate the stenosis. This was followed by placement of 3.0 x 18 mm resolute Kaz drug-eluting stent. We postdilated the stent with 3.25 x 6 mm NC balloon. At this time final angiogram was performed that showed excellent stent expansion, ANKITA-3 flow and no residual stenosis. Guidewire and guide catheter were removed. Angio-Seal was deployed to obtain hemostasis. 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 * Proximal Left Anterior Descendin% stenosis treated with a AB TREK 2.50X12 RX BALLOON, MDT R KAZ 3.0X18 SOPHIA, and MDT IVETH EUPHORA RX [id number] BALLOON. 0% residual stenosis, ANKITA: 3 flow. Conclusions 1. There is total thrombotic occlusion of LAD status post successful revascularization with SOPHIA x1.. 2. Proximal Left Anterior Descending was treated with a Balloon, Drug Eluting Stent, and Balloon. Recommendations * Admit to CSU. * Aspirin and Plavix for atleast 1 year. * High intensity statin therapy. * Beta esther and lisinopril. * Order echocardiogram. * Outpatient cardiology follow. * Cardiac rehab. Interventional RX Recommendation: PCI w/o planned CABG Diagnostic RX Recommendation: PCI w/o planned CABG Anticoagulation: Heparin Pressures Phase:Rest AO : 144 / 95 ( 117 ) @ 10:34:00 AM 131 / 88 ( 109 ) @ 10:41:00 AM Clinical Evaluation EBL: 5mL-10mL Procedural Details Procedure Consent Obtained. Pre-Procedure Time Out. Identified patient by full name and date of as verbalized by the patient/guarantor. Does the consent match the physician's order: Yes. Accurate & Complete Informed Consent: Yes. Inpatient/Outpatient History & Physical on Chart: N/A Emergent. Visualize and Verify Site with Patient/Guarantor: N/A. If H&P is completed, is and addenduem needed: N/A Emergent; If yes, is the addendum complete: No. Relevant Radiology Images available: N/A Emergent. Pre-op teaching completed and patient verbalized understanding. The risks, benefits, and alternatives of sedation and/or procedure were discussed by physician. The patient agrees to continue. Procedure started. [facility] Clinical Fraility Score: 3: Managing Well. 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 Chest Pain Symptom Assessment: Typical Angina Symptoms. Cardiovascular Instability: No. Correct patient, site and procedure confirmed by cath team. PERRLA. Strong, equal hand communications billing analyst bilaterally. Lungs clear x 5 lobes. IV Site on Arrival: 18 gauge in the right anticubital. IV Site on Arrival: 18 gauge in the left anticubital. Physician arrived. Lidocaine 1% infiltrated to the right groin. Arterial access obtained with micropuncture set. 6 new zealander XB 3.5 guide catheter was inserted over the wire. Guide out. Hand injection performed. Hand injection. Glidewire inserted. Equipment: 6F - Femoral. Inventory is TR Glidewire Angled Stiff Shaft .035 260cm. Cardiac Cath Pack. ACIST Manifold Kit Model BT 2000. Heparinized Saline (2 units/mL), 1000 mL bag. Kit, Micropuncture. Inventory is CRD 6 FR XB 3.5 GUIDE. Runthrough guidewire was advanced through the guide catheter to lesion in the prox LAD. Oxygen started at 2liters/min via nasal canula. bilateral groins was prepped with chloroprep then draped in the usual sterile fashion. Runthrough wire seated in the Diag. Inflation number : 1 A AB TREK 2.50X12 RX BALLOON was prepped and advanced across the Prox LAD , then inflated to 12 PHILL for 0:21 seconds. Inflation number: 2 The AB TREK 2.50X12 RX BALLOON was reinflated across the Prox LAD, to 12 PHILL for 0:23 seconds. Balloon out. Results checked. A second Runthrough guidewire was advanced through the guide catheter to lesion in the prox LAD. Critical troponin reported to Dr Saldivar of 918. Called by asset availability leaderStyleJam. Inflation number: 3 The AB TREK 2.50X12 RX BALLOON was reinflated across the Prox LAD, to 12 PHILL for 0:17 seconds. Inflation number: 4 The AB TREK 2.50X12 RX BALLOON was reinflated across the Prox LAD, to 12 PHILL for 0:20 seconds. Balloon out. Runthrough wire from Diagonal removed. Inflation Number : 5 A MARILYNN Parker KAZ 3.0X18 SOPHIA -Lot Number# [id number] exp date 07/20/2022 was prepped and advanced across the Prox LAD. The stent was deployed at 12 PHILL for 0:30 seconds. Results checked. Stent balloon out over wire. Inflation number : 6 A MARILYNN LAZARO EUPHORA RX [id number] BALLOON was prepped and advanced across the Prox LAD , then inflated to 14 PHILL for 0:27 seconds. Inflation number: 7 The MDT NC EUPHORA RX [id number] BALLOON was reinflated across the Prox LAD, to 14 PHILL for 0:27 seconds. Inflation number: 8 The MDT NC EUPHORA RX [id number] BALLOON was reinflated across the Prox LAD, to 14 PHILL for 0:18 seconds. Balloon out. Wire out. Results checked. Guide catheter out. Glidewire inserted. A 5 new zealander JR4 catheter in over wire. Multiple views taken of right coronary artery. Catheter removed over the standard wire. A Right femoral angiogram was performed to determine safe placement of closure device. ACT drawn. Results 214 seconds. Therapeutic limits - pre-heparin administration 90-150 seconds and monitoring heparin during a vascular procedure >250 seconds. Lidocaine 1% infiltrated to the right groin. Physician scrubbed in. Immediate Pre-Procedure Time Out. A Angio-Seal VIP ([facility]) was successful obtaining hemostatsis at the Right Femoral artery insertion site. Post Procedure: Pulses reassessed and unchanged. PERRLA. Strong, equal hand communications billing analyst bilaterally. No VTE prophylaxis required. Post-op diagnosis: stemi. PCI Indication: STEMI. Contrast type used: Omnipaque 300 mgI/mL, 500 mL bottle. Total IV fluids: 50 mL. Medication's Wasted: Lidocaine 1% = 18 mL. Medication's Wasted: Nitro = 49.8 mg. Complications: none. Estimated blood loss: 5mL-10mL. Procedure completed. Patient transferred by bed to 1st floor. Vital chart was stopped. Access Site Site: Right Femoral artery Sheath Size: 6 Fr Hemostasis Method: Angio-Seal VIP ([facility]) Hemostasis Success: Successful Procedure Medications Start: 11:25 AM Stop: 11:25 AM Medication: Versed Amount: 1 mg Route: I.V. Start: 11:25 AM Stop: 11:25 AM Medication: Fentanyl Amount: 50 mcg Route: I.V. Start: 11:29 AM Stop: 11: AM Medication: Heparin Amount: 6000 units Route: I.V. Start: 11:30 AM Stop: 11:30 AM Medication: Versed Amount: 1 mg Route: I.V. Start: 11:30 AM Stop: 11:30 AM Medication: Fentanyl Amount: 50 mcg Route: I.V. Start: 11:31 AM Stop: 11:31 AM Medication: Versed Amount: 1 mg Route: I.V. Start: 11:52 AM Stop: 11:52 AM Medication: Versed Amount: 1 mg Route: I.V. Start: 11:55 AM Stop: 11:55 AM Medication: Nitrogylcerin Amount: 200 mcg Route: I.C. Start: 11:58 AM Stop: 11:58 AM Medication: Aggrastat 12.5 mg/250 mL Amount: 52 ml Route: I.V. bolus Start: 12:00 PM Stop: 12:00 PM Medication: Aggrastat 12.5 mg/250 mL Amount: 18.7 ml/hr Route: I.V. bolus Start: 12:00 PM Stop: 12:00 PM Medication: Versed Amount: 1 mg Route: I.V. Start: 12:04 PM Stop: 12:04 PM Medication: Versed Amount: 1 mg Route: I.V. Start: 12:06 PM Stop: 12:06 PM Medication: Versed Amount: 1 mg Route: I.V. I, the attending physician, have reviewed and verified all procedure medications. Yes, all medications given per verbal order History/Risk Factors Hypertension: No Dyslipidemia: No Peripheral Arterial Disease (PAD): No Myocardial Infarction (IN): No Obesity: No Renal Disease: No Tobacco Use: Current/Recent(w/in 1 year) Prior Interventions PCI: No CABG: No Valve Surgery: No Report Signatures Finalized by Andrew Saldivar MD on 11/15/2020 01:25 PM
[2020-11-15 11:07] LABS: Basophils # 0.1 10^3/uL (0.0-0.1); Basophils % 0.4 %; Eosinophils # 0.1 10^3/uL (0.0-0.8); Eosinophils % 0.3 %; Hematocrit 49.6 % (42.0-52.0); Hemoglobin 17.1 g/dL (11.7-16.6); Lymphocytes # 1.9 10^3/uL (0.8-4.8); Lymphocytes % 12.1 %; Mean Corpuscular HGB Conc 34.5 g/dL (30.0-36.0); Mean Corpuscular Hemoglobin 30.9 pg (28.0-34.0); Mean Corpuscular Volume 89.5 fL (80-94); Mean Platelet Volume 10.7 fL (7.4-10.4); Monocytes # 1.1 10^3/uL (0.2-0.9); Monocytes % 6.7 %; Neutrophils # 12.61 10^3/uL (1.8-7.7); Nucleated Red Blood Cells % 0 %; Platelet Count 290 10^3/cmm (130-400); Red Blood Count 5.54 10^6/uL (4.1-5.3); Red Cell Distribution Width 12.3 % (12.1-15.1); White Blood Count 15.8 10^3/uL (4.0-10.0)
[2020-11-15] MEDS: heparin 5,000 unit/mL INJ 1 mL 4000 UNIT IVP (11:09)
[2020-11-15] MEDS: clopidogrel 300 mg Tablet 600 MG PO (11:13)
--- NOTE | 2020-11-15 11:19 | PM.HP ---
Providers/Chief Complaint Admitting Physician: Andrew Saldivar MD Chief Complaint: CHEST PAIN History of Present Illness Juan C Washington is a 54 year old male with past medical history of stroke in January 2020, hypertension, current smoker has presented with13 hours of chest pain. According to patient he started noticing chest discomfort at 930 last night. Pain has been constant since. He did not call EMS until this morning. On EKG he seems to have anterolateral ST elevations however Q waves are present. He received aspirin, Plavix and heparin bolus. Coronary angiogram showed thrombotic occlusion of proximal LAD. He was revascularized with drug-eluting stent x1. Patient is stable at this time. Review of Systems Const: Denies: fever(s) or chills Eyes: Denies: change in vision ENMT: Denies: throat pain Card: Reports: chest pain; Denies: palpitations Resp: Denies: dyspnea GI: Denies: abdominal pain, vomiting or diarrhea : Denies: difficulty urinating Skin/Breast: Denies: rash Medications/Allergies Home Medications Medication Instructions Recorded Confirmed Last Taken Type amlodipine 5 mg PO DAILY #30 tab 01/02/20 Unknown Rx aspirin [Adult Aspirin Regimen] 81 mg PO DAILY #30 tab 01/02/20 Unknown Rx clopidogrel [Plavix] 75 mg PO DAILY #30 tab 01/02/20 Unknown Rx Allergies Allergy/AdvReac Type Severity Reaction Status Date / Time cephalexin [From Keflex] Allergy Unknown Verified 11/15/20 11:01 PFSH Acute PFSH: Medical History Cigarette smoker Hypertension Left middle cerebral artery stroke Family History Other Stroke Social History Smoking and tobacco status: current every day smoker Alcohol intake: unknown Vitals/I&O/Wt Last Vital Signs Temp 98.0 F 11/15/20 10:54 Pulse 76 11/15/20 10:54 Resp 18 11/15/20 10:54 BP 123/88 11/15/20 10:54 Pulse Ox 97 11/15/20 10:54 Weight last 48 hrs Weight 230 lb Physical Exam Narrative: EXAM NARRATIVE: GENERAL: Patient is alert, awake and oriented x3. [] NECK: No jugular vein distension. [] HEENT: No cyanosis. No icterus. No pallor. [] HEART: Regular S1 and S2. No murmur, rub or gallop. [] LUNGS: Clear to auscultate bilaterally. [] ABDOMEN: Soft, nontender and nondistended. Positive bowel sounds. No guarding, rebound or tenderness. [] CENTRAL NERVOUS SYSTEM: Grossly nonfocal. [] EXTREMITIES: Lower extremities with 1+ edema bilaterally. Pulses palpable in the lower extremities, both dorsalis pedis and posterior tibial. [] Data : 11/15/20 10:06 11/15/20 10:06 A&P Assessment and plan (1) Cigarette smoker: Status: Acute (2) ST elevation (STEMI) myocardial infarction: Status: Acute Qualifiers: Involved coronary artery: unspecified coronary artery Qualified Code(s): I21.3 - ST elevation (STEMI) myocardial infarction of unspecified site (3) Hypertension: Status: Acute Qualifiers: Hypertension type: essential hypertension Qualified Code(s): I10 - Essential (primary) hypertension (4) Left middle cerebral artery stroke: Status: Acute Patient had acute ST elevation WA with delayed presentation as chest pain was going on for more than 12 hours. However given his ongoing chest pain and ST elevation, he was emergently taken to the Mentally Impaired Teacher. Coronary angiogram showed thrombotic occlusion of proximal LAD that was the culprit lesion for his ST elevation WA. He had successful revascularization with SOPHIA x1. Aspirin and Plavix for at least 1 year. Order echocardiogram. High intensity statin therapy. Beta-esther and lisinopril. Attestations Medical Necessity Statement*: Care expected to cross 2 midnights. Patient had presented with acute ST elevation WA. He has undergone successful revascularization. 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
[2020-11-15 11:20] LABS: INR 1.03 (0.8-1.2)
[2020-11-15 11:21] LABS: Partial Thromboplastin Time 27.7 SECONDS (23.9-36.7)
[2020-11-15 11:32] LABS: Alanine Aminotransferase 45 U/L (0-41); Albumin Level 4.4 g/dL (3.5-5.2); Alkaline Phosphatase 89 IU/L (40-130); Anion Gap 18.7 (5-19); Aspartate Amino Transferase 128 U/L (0-40); Blood Urea Nitrogen 9 mg/dL (6-20); Calcium 9.2 mg/dL (8.5-10.5); Carbon Dioxide 23 mmol/L (22-29); Chloride 99 mmol/L (98-107); Globulin 2.6 g/dL (1.3-4.6); Glomerular Filtration Rate 117.5 mL/min (90-130); Glucose 113 mg/dL (65-115); Osmolality Calculated 283 mOsm/kg (285-295); Potassium 3.7 mmol/L (3.5-5.1); Sodium 137 mmol/L (136-145); Total Bilirubin 0.6 mg/dL (0.15-1.2)
[2020-11-15 11:43] LABS: Troponin(5th) Baseline 918 ng/L (0-15)
--- NOTE | 2020-11-15 12:15 | PC.NURSE ---
from laborer salvage angio seal on right groin. no hematoma, swelling or bleeding. pt is sedated.
--- NOTE | 2020-11-15 12:30 | PC.NURSE ---
mild oozing on right groin manual pressure held. Dr. blanco in room aggrastat drip on hold for an hour per verbal order readback
--- NOTE | 2020-11-15 12:52 | USCV_ITS ---
Juan C Washington Age: 54 Gender: M : 1965 Exam Date: 11/15/2020 13:48 Ordering Phys: Andrew Saldivar M.D ([email or web address]) Technologist: Ruma Daniels Exam Location: [facility] [place] Indication: POST STEMI BP: 123 / 88 HR: 72 Rhythm: Sinus Technical Quality: Fair MEASUREMENTS (Male / Female) Normal Values 2D ECHO LV Diastolic Diameter PLAX 4.7 cm 4.2 - 5.9 / 3.9 - 5.3 cm LV Systolic Diameter PLAX 3.0 cm IVS Diastolic Thickness 1.7 cm 0.6 - 1.0 / 0.6 - 0.9 cm IVS Systolic Thickness 1.8 cm LVPW Diastolic Thickness 1.3 cm 0.6 - 1.0 / 0.6 - 0.9 cm LVPW Systolic Thickness 1.5 cm LVOT Diameter 2.0 cm LV Ejection Fraction 2D Teich 66.0 % LV Ejection Fraction MOD 2C 46.4 % LV Ejection Fraction 2C AL 46.7 % LA Diameter 3.8 cm LA Width 2.8 cm LA Height 5.0 cm RA Width 1.5 cm RA Height 4.1 cm Aorta at Sinotubular Diameter 2.4 cm M-MODE LV Diastolic Diameter MM 6.5 cm 4.2 - 5.9 / 3.9 - 5.3 cm LV Systolic Diameter MM 4.9 cm LV Ejection Fraction MM Teich 46.1 % IVS Diastolic Thickness MM 0.8 cm 0.6 - 1.0 / 0.6 - 0.9 cm IVS Systolic Thickness MM 0.8 cm LVPW Diastolic Thickness MM 1.2 cm 0.6 - 1.0 / 0.6 - 0.9 cm LVPW Systolic Thickness MM 1.8 cm RV Diastolic Diameter MM 0.8 cm Aortic Annulus Diameter 3.6 cm LA Ao Ratio MM 1.2 MV E Point Septal Separation 0.4 cm DOPPLER AV Peak Velocity 121.0 cm/s LVOT Peak Velocity 102.0 cm/s AV Area Cont Eq vti 2.9 cm squared AV Area Cont Eq pk 2.7 cm squared MV Area PHT 5.1 cm squared Mitral E to A Ratio 0.7 MV E' Velocity 32.0 cm/s Mitral E to MV E' Ratio 6.7 Mitral E to LV E' Lateral Ratio 6.2 Mitral E to LV E' Septal Ratio 7.3 TV Peak E Velocity 76.0 cm/s Right Atrial Pressure 3.0 mmHg PV Peak Velocity 92.0 cm/s RV Acceleration Time 0.1 s RV Ejection Time 0.3 s RV AcT/ET 0.2 FINDINGS Left Ventricle Normal left ventricular size. LV systolic function is moderately reduced with EF of 35-40%. There is severe hypokinesis of the apical, apical inferoseptal, mid to distal anteroseptal and anterior henderson. Grade 1 diastolic dysfunction Right Ventricle The right ventricle is normal in size and function. Right Atrium The right atrium is normal in size. Left Atrium The left atrium is normal in size. Mitral Valve Structurally normal mitral valve without significant stenosis or prolapse. There is no mitral regurgitation. Aortic Valve Structurally normal aortic valve without significant sclerosis or stenosis. There is no aortic regurgitation. Tricuspid Valve Structurally normal tricuspid valve without significant stenosis or regurgitation. Insufficient TR jet to calculate RVSP Pulmonic Valve Structurally normal pulmonic valve without significant stenosis. There is no pulmonic regurgitation. Pericardium Normal pericardium without effusion. Aorta Normal ascending aorta dimension. CONCLUSIONS Limited quality echocardiogram with poor ultrasonic windows. LV systolic function is atleast moderately reduced with EF of 35- 40% with above mentioned regional wall motion abnormalities. Grade 1 diastolic dysfunction No significant valvular heart disease Compared to prior echocardiogram from 01/02/2020, LV systolic function is significantly low now Andrew Saldivar MD (Electronically Signed) Final Date: 15 Nov 2020 15:13 S
--- NOTE | 2020-11-15 12:58 | ECG_ITS ---
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 Measurements Intervals [place] Rate: 70 P: 63 MI: 147 QRS: 254 QRSD: 90 T: 76 QT: 385 QTc: 417 Interpretive Statements SINUS RHYTHM POSSIBLE LEFT ATRIAL ENLARGEMENT [-0.1mV P WAVE IN V1/V2] MARKED RIGHT AXIS DEVIATION [QRS AXIS > 100] LOW QRS VOLTAGE IN EXTREMITY LEADS [QRS DEFLECTION < 0.5 mV IN LIMB LEADS] INFERIOR MYOCARDIAL INFARCTION [40+ ms Q WAVE AND/OR ST/T ABNORMALITY IN II/aVF], PROBABLY OLD ANTEROLATERAL MYOCARDIAL INFARCTION [40+ ms Q WAVE IN I/aVL/V3-V6], PROBABLY RECENT ACUTE [place] Compared to ECG 11/15/2020 10:57:01 Right-axis deviation now present Low QRS voltage now present Left anterior fascicular block no longer present Myocardial infarct finding still present Electronically Signed On 11-15-2020 20:51:53 CDT by Grey Roth M.D. [id number]
[2020-11-15] MEDS: sodium chloride 0.9% 1,000 ML 100 ML IV (13:15)
--- NOTE | 2020-11-15 13:45 | PC.NURSE ---
Aggrastat restarted verbal order readback to restart aggrastat drip and run for 3 hours. Applied sandbag to right groin. mild oozing noted. No hematoma, swelling noted. pedal pulses are palpable. Pt still asleep from sedation. he wakes up when awaken then fall back to sleep. will keep monitoring.
--- NOTE | 2020-11-15 14:45 | PC.NURSE ---
Repositioned pt to right side in order to urinate Checked groin area. Oozing has stopped. Pt voided 900ml in the urinal. applied new 4x4 pressure dressing to right grojn. sandbag re-applied.
--- NOTE | 2020-11-15 16:00 | PC.NURSE ---
Aggrastat drip stopped Called Dr. Saldivar to verify stopping the aggrastat drip. telephone order readback to stopped the drip now.
[2020-11-15] MEDS: ondansetron 2 mg/ML SDV 2 mL 4 MG IVP (17:27)
[2020-11-15] MEDS: nitroglycerin 1 gm/inch oint Pkt 1 INCH TOPICAL (17:27)
[2020-11-15] MEDS: atorvastatin 40 mg Tablet PO (20:20)
[2020-11-15] MEDS: metoprolol tartrate 25 mg Tablet PO (20:20)
[2020-11-16] VITALS (9 sets, daily range): BP systolic 100–119; BP diastolic 60–82; PULSE 67–89; RESP 13–21; TEMP 36.6–36.7; O2SAT 92–97
--- NOTE | 2020-11-16 06:00 | ECG_ITS ---
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 Measurements Intervals [place] Rate: 75 P: 63 FL: 147 QRS: 250 QRSD: 86 T: 78 QT: 381 QTc: 427 Interpretive Statements SINUS RHYTHM MARKED RIGHT AXIS DEVIATION [QRS AXIS > 100] LOW QRS VOLTAGE IN EXTREMITY LEADS [QRS DEFLECTION < 0.5 mV IN LIMB LEADS] INFERIOR MYOCARDIAL INFARCTION [40+ ms Q WAVE AND/OR ST/T ABNORMALITY IN II/aVF], OF INDETERMINATE AGE ANTEROLATERAL MYOCARDIAL INFARCTION [40+ ms Q WAVE IN I/aVL/V3-V6], PROBABLY RECENT ACUTE [place] Compared to ECG 11/15/2020 13:26:26 No significant changes Electronically Signed On 11-17-2020 0:51:35 CDT by Grey Roth M.D. [id number]
--- NOTE | 2020-11-16 06:11 | PC.NURSE ---
NURSING NOTE: EKG RESULTS: EKG DONE PER RT THIS MORNING. RESULTS ABNORMAL SHOWING ACUTE WA AND ST ELEVATION. PT DENIES CP AT THIS TIME. BP = 100/67 AND HR 74 IN NSR. RIGHT GROIN SITE WITHOUT DRAINAGE OR HEMATOMA. PLACED CALL TO DR. ALMARAZ AT THIS TIME/ RECEIVED NO NEW ORDERS AND DR. ALMARAZ STATED LONG PT ASYMPTOMATIC, WILL WAIT AND LET DR. GREENWOOD ADDRESS WHEN HE SEES PATIENT THIS MORNING. ALL VS AND ASSESSMENTS CHARTED. NO DISTRESS NOTED AT THIS TIME.
[2020-11-16] MEDS: lisinopril 2.5 mg Tablet PO (09:01)
[2020-11-16] MEDS: clopidogrel 75 mg Tablet PO (09:01)
[2020-11-16] MEDS: aspirin 81 mg EC Tablet PO (09:01)
[2020-11-16] MEDS: metoprolol tartrate 25 mg Tablet PO ×2 (09:02→20:09)
--- NOTE | 2020-11-16 10:14 | PC.CHAP ---
Pastoral Care Encounter/Spiritual Assessment Type of Contact [] Declined it engineer visit [] Patient/Family/Request visit [] Outpatient visit [] Follow-up visit [] Physician referral [] Code/Alert [] Routine visit [] Staff referral [] Actively dying [] Patient sleeping [] Family support [] [] Out of room [] Palliative care [] [] Receiving care in room [] Pre-surgical visit [] Trauma [] Long length of stay [] ICU visit [] Other: Relational/Emotional Strength [] Patient feels connected with others/family/visitors/staff [] Distress [] Loneliness/isolation [] Abandonment Spirituality of Patient [] Person of Svetlana [] Attends Baptist of their Svetlana [] Believes in Prayer [] Reads Bible or Episcopal materials [] There are Spiritual issues to be addressed Farm Machinery 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 Up Mechanic Interventions [x] Prayer [] Active listening [] Non-anxious presence [] Spiritual/emotional support [] Crisis/trauma care [] Spiritual counseling [] Bereavement support [] Provided bereavement packet [] Provided Bible/devotional materials [] Provided toy/stuffed animal, coloring book to patient or family member [] Provided Communion [] Anointing/Hubertus [] Salvation [] Completed spiritual assessment [] Other: Impact on Illness or Injury [] Angry [] Fearful [] Anxious [] Often cries [] Exhaustion [] Unable to work [] Unable to attend sikhism [] Unable to walk/stand [] Unable to read [] Unable to drive [] Unable to eat/drink [] Unable to sleep [] Unable to be with family [] Patient intubated [] Other: Summary just wanted to pray then for me to leave Time spent with patient 10min
[2020-11-16 10:36] LABS: Basophils # 0.1 10^3/uL (0.0-0.1); Basophils % 0.4 %; Eosinophils # 0.1 10^3/uL (0.0-0.8); Eosinophils % 0.7 %; Hematocrit 44.7 % (42.0-52.0); Hemoglobin 14.7 g/dL (11.7-16.6); Lymphocytes # 1.6 10^3/uL (0.8-4.8); Lymphocytes % 13.6 %; Mean Corpuscular HGB Conc 32.9 g/dL (30.0-36.0); Mean Corpuscular Hemoglobin 30.9 pg (28.0-34.0); Mean Corpuscular Volume 94.1 fL (80-94); Mean Platelet Volume 10.3 fL (7.4-10.4); Monocytes # 1.1 10^3/uL (0.2-0.9); Monocytes % 8.9 %; Neutrophils # 9.17 10^3/uL (1.8-7.7); Neutrophils % 76.1 %; Nucleated Red Blood Cells % 0 %; Platelet Count 239 10^3/cmm (130-400); Red Blood Count 4.75 10^6/uL (4.1-5.3); Red Cell Distribution Width 12.5 % (12.1-15.1); White Blood Count 12.1 10^3/uL (4.0-10.0)
[2020-11-16 10:54] LABS: Anion Gap 11.9 (5-19); Blood Urea Nitrogen 11 mg/dL (6-20); Calcium 8.5 mg/dL (8.5-10.5); Carbon Dioxide 25 mmol/L (22-29); Chloride 103 mmol/L (98-107); Glomerular Filtration Rate 100.7 mL/min (90-130); Glucose 107 mg/dL (65-115); Osmolality Calculated 282 mOsm/kg (285-295); Potassium 3.9 mmol/L (3.5-5.1); Sodium 136 mmol/L (136-145)
--- NOTE | 2020-11-16 11:46 | PC.RESP ---
Smoking Cessation information sent to patient.
--- NOTE | 2020-11-16 18:58 | PM.PN ---
Subjective Subjective: Interval history: Patient is doing well. Denies any complaints of chest pain, shortness of breath or palpitations. Femoral access site is normal. Vitals/I&O/Wt Last Vital Signs Temp 98.0 F 11/16/20 15:38 Pulse 80 11/16/20 15:38 Resp 13 11/16/20 15:38 BP 117/68 11/16/20 15:38 Pulse Ox 97 11/16/20 15:38 11/16/20 11/16/20 11/16/20 06:59 14:59 22:59 Intake Total 120 / 371.657 580 / 580 Balance 120 / -528.343 580 / 580 Weight last 48 hrs Weight 230 lb Physical Exam Narrative: EXAM NARRATIVE: GENERAL: Patient is alert, awake and oriented x3. [] NECK: No jugular vein distension. [] HEENT: No cyanosis. No icterus. No pallor. [] HEART: Regular S1 and S2. No murmur, rub or gallop. [] LUNGS: Clear to auscultate bilaterally. [] ABDOMEN: Soft, nontender and nondistended. Positive bowel sounds. No guarding, rebound or tenderness. [] CENTRAL NERVOUS SYSTEM: Grossly nonfocal. [] EXTREMITIES: Lower extremities with 1+ edema bilaterally. Pulses palpable in the lower extremities, both dorsalis pedis and posterior tibial. [] Data : 11/16/20 10:25 11/16/20 10:25 A&P Assessment and plan (1) Cigarette smoker: Status: Acute (2) ST elevation (STEMI) myocardial infarction: Status: Acute Qualifiers: Involved coronary artery: unspecified coronary artery Qualified Code(s): I21.3 - ST elevation (STEMI) myocardial infarction of unspecified site (3) Hypertension: Status: Acute Qualifiers: Hypertension type: essential hypertension Qualified Code(s): I10 - Essential (primary) hypertension (4) Left middle cerebral artery stroke: Status: Acute Patient had acute ST elevation AZ with delayed presentation as chest pain was going on for more than 12 hours. However given his ongoing chest pain and ST elevation, he was emergently taken to the Fire Safety Manager. Coronary angiogram showed thrombotic occlusion of proximal LAD that was the culprit lesion for his ST elevation AZ. He had successful revascularization with SOPHIA x1. Aspirin and Plavix for at least 1 year. Echocardiogram shows moderate to severely reduced LV systolic function with EF of 35% High intensity statin therapy. Beta-esther and lisinopril. Patient stays stable overnight, will plan on discharge tomorrow. Attestations Medical Necessity Statement*: Care expected to cross 2 midnights. Patient presented with acute anterior wall ST elevation AZ. He is s/p successful revascularization with SOPHIA x1. Coding Level of Care Code Acute [facility] Disp[facility] Supervisor for [facility] Fwd Diagnoses Cigarette smoker F17.210 ST elevation (STEMI) myocardial infarction I21.3 Involved coronary artery: unspecified coronary artery Hypertension I10 Hypertension type: essential hypertension Left middle cerebral artery stroke I63.512
[2020-11-16] MEDS: atorvastatin 40 mg Tablet PO (20:09)
[2020-11-17 00:30] VITALS: BP 110/80; PULSE 80; RESP 16; TEMP 36.6; O2SAT 96
[2020-11-17 04:36] VITALS: BP 111/62; PULSE 80; RESP 16; TEMP 36.6; O2SAT 95
[2020-11-17 05:12] VITALS: PULSE 67
--- NOTE | 2020-11-17 07:51 | PM.DCS ---
Discharge Providers Date of Admission: 11/15/20 12:27 Date of Discharge: November 17, 2020 Attending Provider at Admission: Andrew Saldivar M.D Attending Provider at Discharge: Andrew Saldivar M.D Primary Care Provider: MICHELLE Fox Diagnoses at Discharge Discharge Diagnosis (1) Cigarette smoker: Status: Acute (2) ST elevation (STEMI) myocardial infarction: Qualifiers: Involved coronary artery: unspecified coronary artery Qualified Code(s): I21.3 - ST elevation (STEMI) myocardial infarction of unspecified site (3) Hypertension: Status: Acute Qualifiers: Hypertension type: essential hypertension Qualified Code(s): I10 - Essential (primary) hypertension (4) Left middle cerebral artery stroke: Reason for Visit Reason for Visit: CHEST PAIN Brief History: 54 year old male with past medical history of stroke in January 2020, hypertension, current smoker has presented with13 hours of chest pain. According to patient he started noticing chest discomfort at 930 last night. Pain has been constant since. He did not call EMS until this morning. On EKG he seems to have anterolateral ST elevations however Q waves are present. He received aspirin, Plavix and heparin bolus. labor relations representative was activated for emergent coronary angiogram. Hospital Course Hospital Course 54 year old male with past medical history of stroke in January 2020, hypertension, current smoker has presented with13 hours of chest pain. According to patient he started noticing chest discomfort at 930 last night. Pain has been constant since. He did not call EMS until this morning. On EKG he seems to have anterolateral ST elevations however Q waves are present. He received aspirin, Plavix and heparin bolus. labor relations representative was activated for emergent coronary angiogram. Coronary angiogram showed thrombotic occlusion of proximal LAD. He was revascularized with drug-eluting stent x1. Patient's echocardiogram showed LVEF of 35%. Patient was discharged home on aspirin and plavix in a stable condition with plans for outpatient follow up. Physical Exam Narrative: EXAM NARRATIVE: GENERAL: Patient is alert, awake and oriented x3. [] NECK: No jugular vein distension. [] HEENT: No cyanosis. No icterus. No pallor. [] HEART: Regular S1 and S2. No murmur, rub or gallop. [] LUNGS: Clear to auscultate bilaterally. [] ABDOMEN: Soft, nontender and nondistended. Positive bowel sounds. No guarding, rebound or tenderness. [] CENTRAL NERVOUS SYSTEM: Grossly nonfocal. [] EXTREMITIES: Lower extremities with 1+ edema bilaterally. Pulses palpable in the lower extremities, both dorsalis pedis and posterior tibial. [] Discharge Data Data Completed and Pending: Completed Studies During Hospitalization Category Date Time Status FLOOR LAYER request for service Stat Exams 11/15/20 11:04 Completed XR chest 1V serenity ble [id number] Stat Exams 11/15/20 10:57 Completed CV echo complete* [id number] Routine Ultrasound 11/15/20 12:52 Completed Labs from last 24 hours 11/16/20 11/16/20 10:25 10:25 WBC 12.1 H RBC 4.75 Hgb 14.7 Hct 44.7 MCV 94.1 H MCH 30.9 MCHC 32.9 RDW 12.5 Plt Count 239 MPV 10.3 Neut % (Auto) 76.1 Lymph % (Auto) 13.6 [place] % (Auto) 8.9 Eos % (Auto) 0.7 Baso % (Auto) 0.4 Neut # (Auto) 9.17 H Lymph # (Auto) 1.6 [place] # (Auto) 1.1 H Eos # (Auto) 0.1 Baso # (Auto) 0.1 Nucleated RBC % (a uto) 0 Nucleated RBCs # 0.0 Sodium 136 Potassium 3.9 Chloride 103 Carbon Dioxide 25 Anion Gap 11.9 BUN 11 Creatinine 0.8 GFR Calculation 100.7 Glucose 107 Calculated Osmolal ity 282 L Calcium 8.5 Vitals: Last Vital Signs Temp 98 F 11/17/20 04:36 Pulse 67 11/17/20 05:12 Resp 16 11/17/20 04:36 BP 111/62 11/17/20 04:36 Pulse Ox 95 11/17/20 04:36 Discharge Plan Discharge Patient Disposition: Home Condition: Stable Prescriptions: New atorvastatin 40 mg Tablet 40 mg PO BEDTIME Qty: 90 RF: 2 clopidogrel 75 mg Tablet 75 mg PO DAILY Qty: 90 RF: 3 aspirin 81 mg Tablet,Delayed Release (Dr/Ec) 81 mg PO DAILY Qty: 90 RF: 3 nitroglycerin 0.4 mg Tablet, Sublingual 0.4 mg sublingual Q5M PRN (Reason: Chest Pain) Qty: 30 RF: 1 lisinopril 2.5 mg Tablet 2.5 mg PO DAILY Qty: 90 RF: 3 metoprolol tartrate 25 mg Tablet 25 mg PO BID@0900,2100 Qty: 120 RF: 3 No Action No Known Home Medications RF: 0 Discharge Orders: Discharge Order (Routine); Ordered 11/17/20 Ordered By: Andrew Saldivar Referrals: ESTHER Smalls FNP [Primary Care Provider] - 11/25/20 10:15 am (You have a hospital followup and to establish care with MICHELLE Gao at [facility] on November 25 at 10:15am) Andrew Saldivar M.D [Physician] - 1 month (you have an appointment with dr saldivar at [facility] on january 01 at 11:00.if you have any questions...call them at [phone]) Dallas Ham FNP [Nurse Practitioner] - 7-10 days (you have an appointment with dallas hamnurse practitioner at [facility] on november 24 at 9:30.if you have any questions...call [phone]) Discharge Diet: Cardiac Discharge Activity: Increase activity as tolerated Patient Instructions: Metoprolol (By mouth), Lisinopril (By mouth), Aspirin (By mouth), Nitroglycerin, Rapid Release (By mouth), Atorvastatin (By mouth), Clopidogrel (By mouth), Myocardial Infarction (DC), Left Heart Catheterization (DC), How to Stop Smoking (DC), Cigarette Smoking and Your Health (GEN), Post Angiogram Home Care Instructions, Quitting Smoking Activity Restrictions/Additional Instructions: Please do not lift more than 5 pounds of weight for the next 5 days Discharge Attestations Time Spent in Discharge Care*: greater than 30 min Quality Metrics Clinical Quality Measures During this hospital stay, did patient experience: AMI Clinical Trial Participant: No Contraindication to aspirin (AMI): Aspirin given Contraindication to statin: Statin prescribed and None Coding Level of Care Code Acute Chg FW DC note Diagnoses Cigarette smoker F17.210 ST elevation (STEMI) myocardial infarction I21.3 Involved coronary artery: unspecified coronary artery Hypertension I10 Hypertension type: essential hypertension Left middle cerebral artery stroke I63.512
[2020-11-17 08:03] VITALS: BP 117/59; PULSE 72; RESP 17; TEMP 36.5; O2SAT 98
[2020-11-17 08:30] VITALS: BP 117/59; PULSE 72; RESP 17; TEMP 36.5; O2SAT 98
[2020-11-17] MEDS: metoprolol tartrate 25 mg Tablet PO (09:13)
[2020-11-17] MEDS: clopidogrel 75 mg Tablet PO (09:32)
[2020-11-17] MEDS: aspirin 81 mg EC Tablet PO (09:33)
[2020-11-17] MEDS: lisinopril 2.5 mg Tablet PO (09:33)
[2020-11-17 10:48] VITALS: BP 102/69; PULSE 88; RESP 18; TEMP 36.7
--- NOTE | 2020-11-17 13:30 | PC.NURSE ---
discharge instructions given and explained.pt verb understanding.medications provided by [facility] pharmacy..meds to beds program.discharged to home at this time.friend to drive pt home.
== END 2020-11-17 13:30 | disposition home or self-care (01) | DRG 247 ==
LOC: ER 11:13 → CCL 11:16 → CSU 12:29
PROVIDERS: Admitting Provider Internal Medicine; Emergency Provider Student in an Organized Health Care Education/Training Program; PCP Nurse Practitioner Family; Visit Provider Internal Medicine
PROC: 027034Z Dilation of Coronary Artery, One Artery with Drug-eluting Intraluminal Device, Percutaneous Approach (ICD-10-PCS; principal; 2020-11-15 11:00)
PROC: 027034Z Dilation of Coronary Artery, One Artery with Drug-eluting Intraluminal Device, Percutaneous Approach (ICD-10-PCS; 2020-11-15 11:00)
DX: I21.02 ST elevation (STEMI) myocardial infarction involving left anterior descending coronary artery (principal); Z86.73 Personal history of transient ischemic attack (TIA), and cerebral infarction without residual deficits; I10 Essential (primary) hypertension; F17.210 Nicotine dependence, cigarettes, uncomplicated
CPT/HCPCS: 36415; 71045; 80048; 80053; 84484; 85025; 85347; 85610; 85730; 93005; 93306; 93454; 96374; 99285; C1725; C1760; C1769; C1874; C1887; C1894; C9606; J1644; J2250; J2405; J3010; J3246; J3490; J7030; Q9967

== ENCOUNTER → 2020-12-14 14:51 | Outpatient (BNVA) | payer SELFPAY | PROVIDERS: PCP Nurse Practitioner Family; Visit Provider Nurse Practitioner Family | DX: I25.119 Atherosclerotic heart disease of native coronary artery with unspecified angina pectoris (principal); I50.20 Unspecified systolic (congestive) heart failure | CPT/HCPCS: 80048 ==

== ENCOUNTER 2022-12-12 11:38 | Outpatient (CLI) | payer BC, MEDICAID, SELFPAY ==
--- NOTE | 2022-12-12 12:15 | XR_ITS ---
WS: [id number] RIGHT SHOULDER: 2 VIEW(S) TECHNIQUE: Internal and external rotation. HISTORY: S49.91XA - Unspecified injury of right shoulder and upper... COMPARISON: None available. No fracture or dislocation or soft tissue abnormality. Mild AC joint narrowing. Small hypertrophic osteophytes from the distal clavicle. XR/XR shoulder RT min 2V* [id number] IMPRESSION: Mild AC joint arthritis.
== END 2022-12-12 11:39 | disposition home or self-care (01) ==
LOC: LAB 11:44
PROVIDERS: PCP Nurse Practitioner Family; Visit Provider Nurse Practitioner Family
DX: S49.91XA Unspecified injury of right shoulder and upper arm, initial encounter (principal); X58.XXXA Exposure to other specified factors, initial encounter; M19.011 Primary osteoarthritis, right shoulder
CPT/HCPCS: 73030; 80053; 80061

== ENCOUNTER → 2023-09-06 10:46 | Outpatient (BNVA) | payer BC, MEDICAID, SELFPAY | PROVIDERS: PCP Nurse Practitioner Family; Visit Provider Nurse Practitioner Family | DX: I10 Essential (primary) hypertension (principal); E78.2 Mixed hyperlipidemia | CPT/HCPCS: 80053; 80061 ==

== ENCOUNTER → 2024-05-22 16:08 | Outpatient (BNVA) | payer BC, MEDICAID, SELFPAY | PROVIDERS: PCP Nurse Practitioner Family; Visit Provider Nurse Practitioner Family | DX: I10 Essential (primary) hypertension (principal); E78.2 Mixed hyperlipidemia | CPT/HCPCS: 80053; 80061 ==

== ENCOUNTER → 2024-11-21 10:28 | Outpatient (BNVA) | payer BC, MEDICAID, SELFPAY | PROVIDERS: PCP Nurse Practitioner Family; Visit Provider Nurse Practitioner Family | DX: I10 Essential (primary) hypertension (principal); E78.2 Mixed hyperlipidemia | CPT/HCPCS: 80053; 80061 ==

== ENCOUNTER → 2025-02-21 08:15 | Outpatient (BNVA) | payer MEDICAID, SELFPAY | PROVIDERS: PCP Nurse Practitioner Family; Visit Provider Nurse Practitioner Family | DX: E78.2 Mixed hyperlipidemia (principal); I10 Essential (primary) hypertension | CPT/HCPCS: 80053; 80061 ==